=== PATIENT | female | born 1980 | race Caucasian/White ===

== ENCOUNTER 2019-08-07 08:28 | Emergency (ER) | payer MEDICAID ==
[~2019-08-07] VITALS: Ht 160 cm; Wt 69.9 kg
[2019-08-07 08:35] VITALS: Ht 160 cm; Wt 69.9 kg
[2019-08-07 11:30] VITALS: BP 169/92
== END 2019-08-07 11:30 | disposition home or self-care (01) ==
LOC: ED 08:28
DX: F41.9 Anxiety disorder, unspecified (principal); M79.10 Myalgia, unspecified site; R00.2 Palpitations
CPT/HCPCS: J1885; J2060; J3010

== ENCOUNTER 2019-08-07 14:29 | Emergency (ER) | payer MEDICAID ==
[~2019-08-07] VITALS: Ht 160 cm; Wt 69.4 kg
[2019-08-07 14:40] VITALS: Ht 160 cm; Wt 69.4 kg
[2019-08-07 15:21] LABS: ALBUMIN 3.8 g/dL (3.4-5.0); ALKALINE PHOSPHATASE 95 U/L (46-116); ALT/SGPT 31 U/L (14-59); AST/SGOT 19 U/L (15-37); BILIRUBIN TOTAL 0.7 mg/dL (0.20-1.00); CALCIUM 8.9 mg/dL (8.5-10.1); CARBON DIOXIDE 22.4 mmol/L (21-32); CHLORIDE SERUM 103 mmol/L (98-107); CREATININE SERUM 0.7 mg/dL (0.6-1.0); GFR1 > 60 mL/min; GLUCOSE SERUM 109 mg/dL (74-106); POTASSIUM SERUM 3.5 mmol/L (3.5-5.1); SODIUM SERUM 137 mmol/L (136-145)
[2019-08-07 15:22] LABS: TOTAL PROTEIN, SERUM 8.3 g/dL (6.4-8.2)
[2019-08-07 15:30] LABS: BASOPHIL % 0.3 % (0-2); PLATELET COUNT 364 x10^3mcL (130-400); RED CELL DISTRIBUTION WIDTH 12.9 % (11.5-14.5)
[2019-08-07 16:21] VITALS: BP 112/64
== END 2019-08-07 17:01 | disposition home or self-care (01) ==
LOC: ED 14:29
PROVIDERS: Emergency Medicine
DX: R07.89 Other chest pain (principal); F41.9 Anxiety disorder, unspecified; R51 Headache; R00.2 Palpitations
CPT/HCPCS: 36415; J0780; J3010; Q0092

== ENCOUNTER 2020-01-25 15:12 | Emergency (ER) | payer MEDICAID ==
[~2020-01-25] VITALS: Ht 157.5 cm; Wt 68.5 kg
[2020-01-25 15:48] VITALS: Ht 157.5 cm; Wt 68.5 kg
[2020-01-25 16:13] LABS: BASOPHIL % 0.3 % (0-2); PLATELET COUNT 320 x10^3mcL (130-400); RED CELL DISTRIBUTION WIDTH 13.8 % (11.5-14.5)
[2020-01-25 16:14] LABS: CALCIUM 8.6 mg/dL (8.5-10.1); CARBON DIOXIDE 25.2 mmol/L (21-32); CHLORIDE SERUM 103 mmol/L (98-107); CREATININE SERUM 0.8 mg/dL (0.6-1.0); GFR1 > 60 mL/min; GLUCOSE SERUM 137 mg/dL (74-106); POTASSIUM SERUM 3.4 mmol/L (3.5-5.1); SODIUM SERUM 140 mmol/L (136-145)
[2020-01-25 16:19] LABS: ALBUMIN 3.7 g/dL (3.4-5.0); ALKALINE PHOSPHATASE 89 U/L (46-116); ALT/SGPT 33 U/L (14-59); AST/SGOT 11 U/L (15-37); TOTAL PROTEIN, SERUM 7.8 g/dL (6.4-8.2)
[2020-01-25 16:59] VITALS: BP 132/92
== END 2020-01-25 16:59 | disposition home or self-care (01) ==
LOC: ED 15:12
DX: F41.9 Anxiety disorder, unspecified (principal)
CPT/HCPCS: Q0092

== ENCOUNTER 2020-04-27 19:51 | Emergency (ER) | payer MEDICAID ==
[~2020-04-27] VITALS: Ht 157.5 cm; Wt 65.5 kg
[2020-04-27 20:35] VITALS: Ht 157.5 cm; Wt 65.5 kg
[2020-04-27 22:17] VITALS: BP 119/73
== END 2020-04-27 22:17 | disposition home or self-care (01) ==
LOC: ED 19:51
DX: S90.31XA Contusion of right foot, initial encounter (principal); I10 Essential (primary) hypertension; W22.8XXA Striking against or struck by other objects, initial encounter; Y93.89 Activity, other specified; Y92.89 Other specified places as the place of occurrence of the external cause; Y99.8 Other external cause status
CPT/HCPCS: 90715; Q0092